=== PATIENT | female | born 2000 | race Two or more races ===

== ENCOUNTER → 2024-11-17 09:02 | Outpatient (BNVA) | payer MEDICAID, SELFPAY | PROVIDERS: Family Provider Family Medicine; PCP Family Medicine; Visit Provider Nurse Practitioner Women's Health | DX: Z34.91 Encounter for supervision of normal pregnancy, unspecified, first trimester (principal) | CPT/HCPCS: 76801; 81025 ==

== ENCOUNTER 2024-12-19 17:45 | Emergency (ER) | payer SELFPAY ==
[2024-12-19 17:51] VITALS: BP 133/79; PULSE 115; RESP 19; TEMP 36.8; O2SAT 100; BMI 30.7
--- NOTE | 2024-12-19 17:51 | USR_ITS ---
PROCEDURE INFORMATION: Exam: US First Trimester, Transabdominal and US , Transvaginal Exam date and time: 12/19/2024 6:12 PM Age: 23 years old Clinical indication: complicated by abdominal or pelvic pain; Right upper quadrant; Second trimester (14 weeks 0 days to 27 weeks 6 days); Gestational age or lmp: 14 weeks 6 days; ; Additional info: Vaginal bleeding, early LABS AND CLINICAL REPORTS: Last menstrual period start date: Unknown Gestational age (Established): 14 w 6 d Estimated due date (Established): 06/13/2025 TECHNIQUE: Imaging protocol: Real-time transabdominal obstetrical ultrasound of the maternal pelvis and a first trimester , less than 14 weeks 0 days, with image documentation. Transvaginal imaging was used for better evaluation of the fetus, adnexa, and/or cervix. COMPARISON: US OB <= 14 weeks fetus [id number] 11/17/2024 9:07 AM FINDINGS: GESTATION: Gestation: Single intrauterine gestation. Embryo/ cardiac activity (BPM): 159 bpm Extra-embryonic membranes/Placenta: Unremarkable. No subchorionic bleed. Amniotic/Chorionic fluid: Amniotic and extra-amniotic fluid are normal for gestational age. Anterior placenta. Breech presentation. MATERNAL: Uterus: Unremarkable. Cervix: Cervical length measures 4.4 cm. Intraperitoneal space: No intraperitoneal free fluid. US/US OB <= 14 weeks fetus [id number] IMPRESSION: Cervical length measures 4.4 cm. Heart rate 159 bpm.
--- NOTE | 2024-12-19 18:07 | W.ED.PREGNAN ---
HPI - General: Chief complaint: Abdominal Pain Stated complaint: 15 weeks preg, abd pain, OB sent Time Seen by Provider: 12/19/24 18:00 History of Present Illness: 23-year-old female who presents emergency room with abdominal pain. She reports bright sided abdominal pain. No nausea vomiting diarrhea. No contractions. No vaginal bleeding or vaginal discharge. She says she is unable to see her OB and was supposed to have a ultrasound about now. But is having insurance problems. Related Data Home Medications ?Medication ?Instructions ?Recorded ?Confirmed [id number] 400 mcg-om3 35 mg-dha 25 tab PO DAILY 11/17/24 12/02/24 mg-epa 5 mg-fish oil chewable tablet Previous Rx's ?Medication ?Instructions ?Recorded cefdinir 300 mg capsule 300 mg PO BID 10 days #20 caps 12/19/24 Allergies Allergy/AdvReac Type Severity Reaction Status Date / Time No Known Allergies Allergy Verified 12/19/24 17:55 Review of Systems Narrative: Constitutional symptoms: Negative except as documented in HPI. Skin symptoms: Negative except as documented in HPI. Eye symptoms: Negative except as documented in HPI. ENMT symptoms: Negative except as documented in HPI. Respiratory symptoms: Negative except as documented in HPI. Cardiovascular symptoms: Negative except as documented in HPI. Gastrointestinal symptoms: Negative except as documented in HPI. Genitourinary symptoms: Negative except as documented in HPI. Musculoskeletal symptoms: Negative except as documented in HPI. Neurologic symptoms: Negative except as documented in HPI. Psychiatric symptoms: Negative except as documented in HPI. Endocrine symptoms: Negative except as documented in HPI. [facility] PFSH: Medical History (Updated 12/19/24 @ 21:50 by Debbie Matos MD) Anxiety treated with Adderall; has not taken this in several years Elevated blood pressure reading without diagnosis of hypertension No pertinent past medical history neghx: dm, thryoid, dvt/pe PCP: Monique Borrero NP - [facility] Surgical History (Updated 11/17/24 @ 08:43 by Cleopatra Green APN, ADELIA) Hx of hernia repair umbilical at age 4 Hx of tonsillectomy Family History Mother Hypertension Brother Hypertension Grandmother Diabetes Denies family history of Colon cancer Ovarian cancer Prostate cancer Heart disease Hyperlipidemia Breast cancer Uterine cancer Thyroid disease Stroke Social History Smoking and tobacco/nicotine status: current every day tobacco/nicotine user (1-3 cigarettes a day ) Physical Exam Narrative: EXAM NARRATIVE: General: Alert, no acute distress. Skin: Warm, dry. Head: Normocephalic, atraumatic. Neck: Supple, trachea midline. Eye: Extraocular movements are intact. Ears, nose, mouth and throat: mucosa moist. Cardiovascular: Regular, Normal peripheral perfusion. Respiratory: Lungs are clear to auscultation, respirations are non-labored, breath sounds are equal, Symmetrical chest wall expansion. Gastrointestinal: Soft, Nontender, Non distended Musculoskeletal: Normal ROM, no deformity. Neurological: Alert and oriented, No focal neurological deficit observed. Psychiatric: Cooperative, appropriate mood & affect. Course Vital Signs: Vital signs: Vital Signs Temperature 98.2 F 12/19/24 17:51 Pulse Rate 115 H 12/19/24 17:51 Respiratory Rate 19 H 12/19/24 17:51 Blood Pressure 133/79 12/19/24 17:51 Pulse Oximetry 100 12/19/24 17:51 Oxygen Delivery Me thod Room Air 12/19/24 17:51 MDM - OB/Uterine Contractions Medical Decision Making Medical decision making: Differential diagnosis including but not limited to and based on the above HPI, review of systems and physical exam: for patient in with abdominal pain: Spontaneous , threatened . Urinary tract infection. Orders placed to evaluate differential diagnosis based on the above differential, HPI and physical exam Lab Review: Laboratory results were reviewed and interpreted by myself the emergency room physician. No leukocytosis. Hemoglobin is a bit low at 9.9 but would be expected in person. No renal failure. Quant is appropriate at 25,000. Urinalysis positive for urinary tract infection. 4+ bacteria 25-50 whites. Leukocyte setters positive. Nitrate positive. Ultrasound obstetric: Heart rate 159. No chorionic hemorrhage. No abnormalities. Appropriate for 1415-week . This was reviewed and interpreted by myself the emergency room physician. I also reviewed the radiology report. I reviewed the patient's medical record. Reexamination: Patient remained stable. No increased work of breathing. No altered mental status. No focal motor deficits. Assessment and plan: Abdominal pain in Urinary tract infection ?IV Rocephin in the emergency room. - Discharged home - Discussed plan with patient. Answered any questions. - Evaluation and treatment of this problem were appropriate in the emergency setting. Lab Data 12/19/24 18:05 12/19/24 18:05 Radiology Impressions Ultrasound 12/19/24 17:51 IMPRESSION: Cervical length measures 4.4 cm. Heart rate 159 bpm. Laboratory Results WBC 5.99 10^3/uL (3.29-11.43) 12/19/24 18:05 RBC 4.23 10^6/uL (3.85-5.65) 12/19/24 18:05 Hgb 9.90 g/dL (11.27-16.99) L 12/19/24 18:05 Hct 31.3 % (36-47) L 12/19/24 18:05 MCV 74.0 fl (85-98) L 12/19/24 18:05 MCH 23.4 pg (27-33) L 12/19/24 18:05 MCHC 31.6 g/dL (30-55) 12/19/24 18:05 RDW 24.2 % (12.1-15.1) H 12/19/24 18:05 Plt Count 212 10^3/cmm (157-399) 12/19/24 18:05 MPV 8.8 fL (7.4-10.4) 12/19/24 18:05 Neut % (Auto) 65.0 % 12/19/24 18:05 Lymph % (Auto) 23.2 % 12/19/24 18:05 [place] % (Auto) 10.0 % 12/19/24 18:05 Eos % (Auto) 1.2 % 12/19/24 18:05 Baso % (Auto) 0.3 % 12/19/24 18:05 Neut # (Auto) 3.89 10^3/uL (1.8-7.7) 12/19/24 18:05 Lymph # (Auto) 1.4 10^3/uL (0.8-4.8) 12/19/24 18:05 [place] # (Auto) 0.6 10^3/uL (0.2-0.9) 12/19/24 18:05 Eos # (Auto) 0.1 10^3/uL (0.0-0.8) 12/19/24 18:05 Baso # (Auto) 0.0 10^3/uL (0.0-0.1) 12/19/24 18:05 Nucleated RBC % (auto) 0 % 12/19/24 18:05 Nucleated RBCs # 0.0 /100WBC 12/19/24 18:05 Sodium 134 mmol/L (136-145) L 12/19/24 18:05 Potassium 3.2 mmol/L (3.5-5.1) L 12/19/24 18:05 Chloride 100 mmol/L (98-107) 12/19/24 18:05 Carbon Dioxide 21 mmol/L (22-29) L 12/19/24 18:05 Anion Gap 16.2 (5-19) 12/19/24 18:05 BUN 6 mg/dL (6-20) 12/19/24 18:05 Creatinine 0.5 mg/dL (0.5-0.9) 12/19/24 18:05 GFR Calculation 154.3 mL/min (90-130) H 12/19/24 18:05 Glucose 112 mg/dL (65-115) 12/19/24 18:05 Calculated Osmolality 276 mOsm/kg (285-295) L 12/19/24 18:05 Calcium 9.3 mg/dL (8.5-10.5) 12/19/24 18:05 Total Bilirubin 0.2 mg/dL (0.15-1.2) 12/19/24 18:05 AST 12 U/L (0-32) 12/19/24 18:05 ALT 6 U/L (0-33) 12/19/24 18:05 Alkaline Phosphatase 61 U/L (35-105) 12/19/24 18:05 Total Protein 7.5 g/dL (6.6-8.7) 12/19/24 18:05 Albumin 4.1 g/dL (3.5-5.2) 12/19/24 18:05 Globulin 3.4 g/dL (1.3-4.6) 12/19/24 18:05 Ser , Semi-Qnt 15022.00 mIU/mL 12/19/24 18:05 Urine Color Dark yellow (Yellow) A 12/19/24 19:45 Urine Appearance Cloudy (CLEAR) A 12/19/24 19:45 Urine pH 6.0 (5-7) 12/19/24 19:45 Ur Specific [place] 1.029 (1.005-1.030) 12/19/24 19:45 Urine Protein 1+ (Negative) A 12/19/24 19:45 Urine Glucose (UA) Negative (Normal) 12/19/24 19:45 Urine Ketones 1+ (Negative) H 12/19/24 19:45 Urine Blood Negative (Negative) 12/19/24 19:45 Urine Nitrate Positive (Negative) A 12/19/24 19:45 Urine Bilirubin Negative (Negative) 12/19/24 19:45 Urine Urobilinogen 2.0 mg/dL (Negative) H 12/19/24 19:45 Ur Leukocyte Esterase 2+ (Negative) A 12/19/24 19:45 Urine RBC 6-10 /hpf (0-2) 12/19/24 19:45 Urine WBC 51-100 /hpf (0-5) H 12/19/24 19:45 Ur Squamous Epith Cells 21-50 /hpf (0-5) H 12/19/24 19:45 Calcium Oxalate Crystal 25-40 /hpf H 12/19/24 19:45 Amorphous Sediment Not Reportable 12/19/24 19:45 Urine Bacteria 4+ /hpf (NONE) H 12/19/24 19:45 Hyaline Casts 11.16 /lpf 12/19/24 19:45 Blood Type B Positive 12/19/24 18:05 Rho(D) Type Rh positive 12/19/24 18:05 All radiology interpretation(s) finalized by discharge Discharge Plan Discharge Patient Disposition: Home Clinical Impression: Urinary tract infection affecting Condition: Stable Prescriptions: New cefdinir 300 mg capsule 300 mg PO BID 10 Days Qty: 20 0RF No Action [id number] oil 400 mcg-35 mg -25 mg-5 mg tablet,chewable PO DAILY Discharge Orders: Discharge ED (Routine); Ordered 12/19/24 Ordered By: Debbie Matos Referrals: Monique Borrero FNP [Primary Care Provider, Family Practice] Discharge Diet: Usual diet Discharge Activity: Increase activity as tolerated Patient Instructions: Urinary Tract Infection in (ED), Opioid Safety, Pain Management, Patient Portal & [facility] Instructions Activity Restrictions/Additional Instructions: 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 Thank you for choosing [facility] for your healthcare needs today. You have been screened and evaluated and felt safe for discharge. Health conditions do change or evolve sometimes and as such it is important that you follow up with your Primary Doctor to be re checked, 3-5 days is a general good time frame for follow up. You are always welcome to return to the ED for re assessment if your symptoms are worsening or you have new concerns Print Language: [place] Coding Level of Care Code ED Evaluation Specialist for Rhoda Overton
[2024-12-19 18:11] LABS: Hematocrit 31.3 % (36-47); Hemoglobin 9.90 g/dL (11.27-16.99); Mean Corpuscular HGB Conc 31.6 g/dL (30-55); Mean Corpuscular Hemoglobin 23.4 pg (27-33); Mean Corpuscular Volume 74.0 fl (85-98); Nucleated Red Blood Cells % 0 %; Platelet Count 212 10^3/cmm (157-399); Red Blood Count 4.23 10^6/uL (3.85-5.65); White Blood Count 5.99 10^3/uL (3.29-11.43)
[2024-12-19 18:41] LABS: Alanine Aminotransferase 6 U/L (0-33); Albumin Level 4.1 g/dL (3.5-5.2); Alkaline Phosphatase 61 U/L (35-105); Anion Gap 16.2 (5-19); Aspartate Amino Transferase 12 U/L (0-32); Blood Urea Nitrogen 6 mg/dL (6-20); Calcium 9.3 mg/dL (8.5-10.5); Carbon Dioxide 21 mmol/L (22-29); Chloride 100 mmol/L (98-107); Creatinine Clr Calc Pharmacy 215.8088; Globulin 3.4 g/dL (1.3-4.6); Glucose 112 mg/dL (65-115); Osmolality Calculated 276 mOsm/kg (285-295); Potassium 3.2 mmol/L (3.5-5.1); Sodium 134 mmol/L (136-145); Total Protein 7.5 g/dL (6.6-8.7)
[2024-12-19 19:51] LABS: Glucose Urine UA Negative (Normal); Nitrate Urine Positive (Negative); Specific Gravity, Urine 1.029 (1.005-1.030)
[2024-12-19 20:25] LABS: UA Slide Review UA Slide Review Perf
[2024-12-19] MEDS: cefTRIAXone 1,000 mg SDV 1000 MG IVP (22:09)
== END 2024-12-19 22:25 | disposition home or self-care (01) ==
PROVIDERS: Emergency Provider Emergency Medicine; PCP Nurse Practitioner Family
DX: O23.42 Unspecified infection of urinary tract in pregnancy, second trimester (principal); N39.0 Urinary tract infection, site not specified; Z3A.15 15 weeks gestation of pregnancy; F17.210 Nicotine dependence, cigarettes, uncomplicated
CPT/HCPCS: 36415; 76801; 80053; 81001; 84702; 85025; 86900; 87077; 87086; 87186; 96374; 99284; J0696

== ENCOUNTER → 2025-01-12 09:50 | Outpatient (BNVA) | payer MEDICAID, SELFPAY | PROVIDERS: PCP Nurse Practitioner Family; Visit Provider Obstetrics & Gynecology | DX: Z34.90 Encounter for supervision of normal pregnancy, unspecified, unspecified trimester (principal); Z3A.18 18 weeks gestation of pregnancy | CPT/HCPCS: 80307; 84315; 84443; 86592; 86762; 86803; 87086; 87340; 87491; 87591; 87624; 87661; 87806 ==

== ENCOUNTER 2025-01-27 14:46 | Outpatient (CLI) | payer MEDICAID, SELFPAY ==
--- NOTE | 2025-01-27 15:00 | USR_ITS ---
PROCEDURE INFORMATION: Exam: US After First Trimester, Transabdominal Exam date and time: 01/27/2025 3:23 PM Age: 24 years old Clinical indication: Screening exam; Routine US, uterus; Additional info: Z34.90 - encounter for supervision of normal , u. . . , I LABS AND CLINICAL REPORTS: Last menstrual period start date: Unknown Gestational age (Established): 20 w 3 d Estimated due date (Established): 06/13/2025 TECHNIQUE: Imaging protocol: Real-time transabdominal obstetrical ultrasound of the maternal pelvis and a second or third trimester with image documentation. COMPARISON: US OB <= 14 weeks fetus [id number] 12/19/2024 6:12 PM FINDINGS: Gestation: Single live intrauterine . heart rate: 150 bpm presentation and position: Cephalic presentation Placenta: Unremarkable. No subchorionic bleed. Placenta is anterior in location without evidence of placenta previa. Amniotic fluid (Qualitative): Amniotic fluid is normal for gestational age. Amniotic fluid index: Subjectively within normal limits. MADHURI not measured. ANATOMY: midline falx: Unremarkable as visualized. cerebellum: Normal. lateral ventricles: Normal. cisterna magna: Normal. choroid plexus: Unremarkable as visualized. face: Upper lip is not well seen on this exam. heart four-chamber view, heart size and position: Unremarkable as visualized. Cardiac views are limited on this exam. heart right ventricular outflow tract: Not well seen on this exam. heart left ventricular outflow tract: Not well seen on this exam. kidneys: Normal. stomach: Normal. urinary bladder: Normal. spine: Unremarkable as visualized. Umbilical cord and insertion: Normal. upper limbs: Unremarkable as visualized. lower limbs: Unremarkable as visualized. external genitalia: Unremarkable as visualized. BIOMETRY: Gestational age (AUA): 20 weeks 5 days Estimated due date (AUA): June 11, 2025 Estimated weight: 373.08 g. EFW by AC, BPD, FL, HC, Hadlock 1985, 62.3% Biparietal diameter (BPD): 4.96 cm. EGA (BPD) is 21 w 0 d. 73.1 % percentile Head circumference (HC): 18.64 cm. EGA (HC) is 21 w 0 d. 66.4 % percentile Abdominal circumference (AC): 15.73 cm. EGA (AC) is 20 w 6 d. 59 % percentile Femur length (FL): 3.34 cm. EGA (FL) is 20 w 3 d. 42.9 % percentile HC/AC: 1.18. (Normal range: 1.06 - 1.25) FL/HC: 17.92. (Normal range: 16.16 - 20.16) FL/BPD: 67.34 FL/AC: 21.23 MATERNAL: Uterus: Unremarkable. Cervix: Cervical length measures 4 cm. Right ovary/adnexa: Obscured by lack of adequate acoustic window. Left ovary/adnexa: Obscured by lack of adequate acoustic window. Intraperitoneal space: No intraperitoneal free fluid. US/US OB >= 14 weeks fetus [id number] IMPRESSION: 1. Single live intrauterine gestation with a mean sonographic age of 20 weeks 5 days. This corresponds to a clinical age of 20 weeks 3 days. There has been appropriate interval growth since the prior study. 2. Suboptimal visualization of the nose/lips, profile, and cardiac structures.
== END 2025-01-27 14:47 | disposition home or self-care (01) ==
LOC: RAD 14:49
PROVIDERS: PCP Nurse Practitioner Family; Visit Provider Obstetrics & Gynecology
DX: Z34.92 Encounter for supervision of normal pregnancy, unspecified, second trimester (principal); Z3A.20 20 weeks gestation of pregnancy
CPT/HCPCS: 76805

== ENCOUNTER → 2025-02-06 07:55 | Outpatient (BNVA) | payer MEDICAID, SELFPAY | PROVIDERS: PCP Nurse Practitioner Family; Visit Provider Obstetrics & Gynecology | DX: Z34.90 Encounter for supervision of normal pregnancy, unspecified, unspecified trimester (principal) | CPT/HCPCS: 84315 ==

== ENCOUNTER 2025-02-15 12:04 | Outpatient (CLI) | payer MEDICAID, SELFPAY ==
--- NOTE | 2025-02-15 13:15 | USR_ITS ---
PROCEDURE INFORMATION: Exam: US , Follow up Exam date and time: 02/15/2025 1:16 PM Age: 24 years old Clinical indication: Screening exam; Routine US, uterus; Additional info: Z34.90 - encounter for supervision of normal , u. . . , LABS AND CLINICAL REPORTS: Gestational age (Established): 23 w 1 d Estimated due date (Established): 06/13/2025 TECHNIQUE: Imaging protocol: Transabdominal ultrasound of the uterus, real time with image documentation. Follow-up (eg, re-evaluation of size by measuring standard growth parameters and amniotic fluid volume, re-evaluation of organ system(s) suspected or confirmed to be abnormal on a previous scan). COMPARISON: US OB >= 14 weeks fetus [id number] 01/27/2025 3:23 PM FINDINGS: Gestation: Intrauterine gestation. heart rate: 144 bpm presentation and position: Breech. Placenta: Anterior. ANATOMY: face: Normal. heart four-chamber view, heart size and position: heart four-chamber view: Normal. heart right ventricular outflow tract: Normal. heart left ventricular outflow tract: Normal. BIOMETRY: Gestational age (AUA): 24 weeks 0 days Estimated due date (AUA): 06/07/2025 Estimated weight: 634.36 g. EFW by AC, BPD, FL, HC, Hadlock 1985, 76.3 percentile Biparietal diameter (BPD): 5.98 cm. EGA (BPD) is 24 w 3 d. 86.2 % percentile Head circumference (HC): 22.11 cm. EGA (HC) is 24 w 1 d. 74.1 % percentile Abdominal circumference (AC): 18.95 cm. EGA (AC) is 23 w 5 d. 59.9 % percentile Femur length (FL): 4.25 cm. EGA (FL) is 23 w 6 d. 62.9 % percentile HC/AC: 1.17. (Normal range: 1.04 - 1.22) FL/HC: 19.22. (Normal range: 18.7 - 20.9) FL/BPD: 71.07. (Normal range: 71 - 87) FL/AC: 22.43. (Normal range: 20 - 24) MATERNAL: Cervix: 4.5 cm and closed. [place] [id number] IMPRESSION: 1. Single live intrauterine with normal heart rate. 2. Four-chamber heart and bilateral ventricular outflow tracts and face/profile within normal limits. Remaining anatomy seen previously. 3. Estimated gestational age 24 weeks 0 days with estimated due date 06/07/2025.
== END 2025-02-15 12:05 | disposition home or self-care (01) ==
LOC: RAD 12:06
PROVIDERS: PCP Nurse Practitioner Family; Visit Provider Obstetrics & Gynecology
DX: Z34.92 Encounter for supervision of normal pregnancy, unspecified, second trimester (principal); Z3A.23 23 weeks gestation of pregnancy
CPT/HCPCS: 76816

== ENCOUNTER → 2025-02-23 10:15 | Outpatient (BNVA) | payer MEDICAID, SELFPAY | PROVIDERS: PCP Nurse Practitioner Family; Visit Provider Nurse Practitioner Women's Health | DX: Z34.90 Encounter for supervision of normal pregnancy, unspecified, unspecified trimester (principal); O99.019 Anemia complicating pregnancy, unspecified trimester | CPT/HCPCS: 82607; 82728; 82746; 82950; 83550; 84315; 85025 ==

== ENCOUNTER → 2025-03-27 08:19 | Outpatient (BNVA) | payer MEDICAID, SELFPAY | PROVIDERS: PCP Nurse Practitioner Family; Visit Provider Obstetrics & Gynecology | DX: Z34.02 Encounter for supervision of normal first pregnancy, second trimester (principal); O99.012 Anemia complicating pregnancy, second trimester | CPT/HCPCS: 84315; 85025 ==

== ENCOUNTER → 2025-04-05 08:56 | Outpatient (BNVA) | payer MEDICAID, SELFPAY | PROVIDERS: PCP Nurse Practitioner Family; Visit Provider Obstetrics & Gynecology | DX: Z3A.30 30 weeks gestation of pregnancy (principal) | CPT/HCPCS: 84315 ==

== ENCOUNTER → 2025-04-12 10:55 | Outpatient (BNVA) | payer MEDICAID, SELFPAY | PROVIDERS: PCP Nurse Practitioner Family; Visit Provider Nurse Practitioner | DX: R50.9 Fever, unspecified (principal) | CPT/HCPCS: 87426 ==

== ENCOUNTER → 2025-04-19 09:56 | Outpatient (BNVA) | payer MEDICAID, SELFPAY | PROVIDERS: PCP Nurse Practitioner Family; Visit Provider Obstetrics & Gynecology | DX: O99.013 Anemia complicating pregnancy, third trimester (principal) | CPT/HCPCS: 84315 ==